=== PATIENT | female | born 1950 | race Caucasian/White ===

== ENCOUNTER 2023-06-06 16:20 | Emergency (ER) | payer MEDICARE | END 2023-06-06 19:09 | disposition home or self-care (01) | LOC: JP.ED 16:20 | DX: K04.7 Periapical abscess without sinus (principal); I48.91 Unspecified atrial fibrillation; I10 Essential (primary) hypertension; E03.9 Hypothyroidism, unspecified; Z79.01 Long term (current) use of anticoagulants; Z79.899 Other long term (current) drug therapy | CPT/HCPCS: 99282 ==